=== PATIENT | male | born 1945 | race Caucasian/White ===

== ENCOUNTER 2018-03-26 18:31 | Inpatient (IN) ==
--- NOTE | 2018-03-26 20:54 | ED ---
HPI General Chief Complaint: Altered Mental Status Stated Complaint: Phy sent/medical Time Seen by Provider: 03/26/18 20:23 Source: patient and family Mode of arrival: ambulatory Limitations: altered mental status and physical limitation History of Present Illness HPI narrative: Patient is a 72 yo male with a history of Lewy body dementia w/ Parkinson's and bipolar disorder who presents with altered mental status coinciding with falling and hitting head x3 over the past several days. 4 days ago the patient had "the worst headache of his life" and self-increased his lithium and quetiapine. The headache resolved the next day but was at that point confused and unable to complete sentences, per patient's . He also had more difficulty than usual with balance and proceeded to fall 3 times over the next 3 days, twice hitting his head. Patient unsure if AMS worsened by falls. Possible increase in tremor in recent days. He had a visit with his neurologist's [facility] in [place] today who ordered urgent imaging and labs. When the results were received and discussed with neurologist, the patient was advised to present to ED. He came to [place] in order to be in a hospital closer to his home ([place]). 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 Per patient, has had history of kidney disease but baseline Cr around 1.3. Valera levels were drawn as well but have not resulted per patient. Related Data Home Medications Medication Instructions Recorded Confirmed atenolol 25 mg PO DAILY 03/26/18 03/26/18 bethanechol chloride 25 mg PO BID 03/26/18 03/26/18 lithium carbonate 300 mg PO BID 03/26/18 03/26/18 meloxicam submicronized 5 mg PO DAILY 03/26/18 03/26/18 omeprazole 40 mg PO DAILY 03/26/18 03/26/18 quetiapine 150 mg PO QPM 03/26/18 03/26/18 tamsulosin 0.4 mg PO DAILY 03/26/18 03/26/18 Allergies Allergy/AdvReac Type Severity Reaction Status Date / Time metronidazole AdvReac Severe Headache Verified 03/26/18 23:06 Review of Systems ROS: all other systems reviewed are negative Constitutional Denies fever(s), Reports frequent falls, Denies headache(s) and Denies weakness Eyes Denies change in vision and Denies loss of vision Cardiovascular Denies chest pain and Denies dyspnea Respiratory Denies dyspnea Gastrointestinal Denies abdominal pain Genitourinary Reports urinary frequency Musculoskeletal Reports abnormal gait, Denies muscle weakness and Reports numbness Neurologic Reports abnormal gait, Reports confusion, Reports frequent falls, Reports sensory deficit and Reports disequilibrium [facility] Medical History Medical History Anxiety (Acute) Bipolar 1 disorder (Acute) HTN (hypertension) (Acute) History of prostate cancer (Acute) Kidney disease (Acute) Parkinson disease (Acute) Family History Family History Other Lung cancer Prostate cancer Social History Social History Substance History: No History of Abuse Second Hand Smoke Exposure: No Smoking Status: Never smoker How Often Do You Have a Drink Containing Alcohol: Monthly or less Recent Travel in [facility] within the Last 8 Weeks: No Recent Out of Country Travel within the Last 8 Weeks: No Exam Const General: cooperative, no acute distress and well developed Orientation: alert and awake Other: tremor, at times difficulty interpreting and following commands HENMN Head: normocephalic and atraumatic Nose: no nasal discharge and no epistaxis Mouth: moist mucous membranes Eyes Sclera: normal sclerae Pupils: PERRL Neck Neck: trachea midline and no JVD Resp Effort & Inspection: no use of accessory muscles Auscultation: clear to auscultation bilaterally Cardio Rate: regular rate Rhythm: regular rhythm Heart Sounds: no murmurs GI Inspection: non-distended Palpation: soft, no hepatosplenomegaly and nontender Skin General: dry skin (warm) Neuro General: alert and awake Cranial Nerves: CN's II-XI intact bilaterally, PERRL, accommodation normal, no nystagmus, facial strength normal and other Cognition: abnormal cognition Speech: speech normal Gait: ataxic Motor: tremor (coarse, upper and lower extremities, at rest and with movement) Coordination: egmugu-sm-fday test abnormal, nrrt-ed-cywg test normal, abnormal rapid alternating movement UE and other (worse on left) Comatose Patient: other Pupils: Normal pupillary reactivity/response: bilateral Extrem General: normal to inspection, no clubbing, no cyanosis and no edema Psych Mood: congruent mood Affect: normal affect Judgment: judgment good Course Initial Documented Vital Signs Temperature 98.4 F 03/26/18 18:35 Pulse Rate 72 03/26/18 18:35 Respiratory Rate 15 03/26/18 18:35 Blood Pressure 210/110 H 03/26/18 18:35 Pulse Oximetry 99 03/26/18 18:35 Last Documented Vital Signs Temperature 98.4 F 03/26/18 18:35 Pulse Rate 69 03/27/18 03:50 Respiratory Rate 18 03/27/18 03:50 Blood Pressure 194/98 H 03/27/18 03:50 Pulse Oximetry 95 03/27/18 03:50 Medical Decision Making MDM Narrative Medical decision making narrative: I, Dr. Nur, have reviewed the medical student's documentation and am in agreement, met with the patient face to face, made the diagnosis, and the medical decision making was done by me. The patient was initially evaluated by Jesse Munroe, MS IV. Please see his complete history and physical. *My assessment and Findings: The patient presents with a history of reportedly being off balance over the last several days. The patient reports falling 3 times related to this and hitting his head twice with the falls. The patient denies having any vertigo associated with this, however he is having to hold onto things to walk and walk with a wide-based gait. The patient reports that he was evaluated earlier today in [place] regarding the symptoms and was noted to have an acute kidney injury. They plan to admit him in [place], however the patient reports that he elected to be admitted closer to home. The patient's primary care physician is Dr. Baker. The patient reports a past medical history of Lewy body dementia, Parkinson's. The patient reports that Parkinson's medications were not working well for him, therefore he is not taking any currently. He does report having worsening tremor recently. The patient has copies of his medical records from the evaluation earlier today that revealed a creatinine of 2.6, MRI that revealed a venous abnormality in the left cerebellum. General: The patient is a well-developed well-nourished male in no acute distress. Head and Neck exam: Head is normocephalic atraumatic. Eyes: EOMI, pupils are equal round and reactive to light. Nose: Midline septum with pink mucous membranes Mouth: Dentition unremarkable. Moist mucus membranes. Posterior oropharynx is not erythematous. No tonsillar hypertrophy. Uvula midline. Airway patent. Neck: No palpable lymphadenopathy. No nuchal rigidity. No thyromegaly. Cardiovascular: Regular rate and rhythm without murmurs, gallops, or rubs. No pulse deficit to the extremities on simultaneous auscultation and palpation of his radial artery. Lungs: Clear to auscultation bilaterally. No wheezes, rhonchi, or rales. Abdomen: Soft, without tenderness to palpation in all 4 quadrants of the abdomen. No guarding, rebound, or rigidity. Normal bowel sounds are audible. Negative Karimi's sign. Extremities: No clubbing, cyanosis, or edema. 2+ pulses in all 4 extremities. No calf tenderness on palpation. Back: No spinous process tenderness to palpation. No costovertebral angle tenderness to palpation. Neurologic Exam: Cranial nerves 2-12 were intact on exam. Strength is 5/5 in all 4 extremities. The patient reports having increased sensitivity on sensory testing reportedly done earlier today specifically on the left lower extremity. The patient has increased difficulty with finger to nose on the left compared to the right. The patient has a coarse tremor noted that also makes it difficult for finger to nose testing as well as heel to francois, however heel to francois is slightly worse on the left compared to the right. Skin Exam: No rash noted. Intact skin that is warm and dry. During the course of the patient's emergency department visit, the patient's history, examination, and differential diagnosis were reviewed with the patient. The patient was placed on a environmental monitoring specialist with oximetry and frequent blood pressure monitoring. The patient had IV access obtained and blood work sent for analysis. From reviewing the records from the [facility], the patient was noted to have an MRI of the brain done that showed a large venous anomaly of the left cerebellum. This was not seen previously according to the neurologist note on his prior MRIs and according to the neurologist note does correspond to the area of complaint for the patient's current symptoms. The neurologist was concerned about a subacute vascular finding and did recommend admission for further evaluation. The patient's diagnostic studies were reviewed and remarkable for a creatinine of 2.73 this is compared to the last creatinine at this facility which on July 04, 2014 was noted to be 1.82.The patient's white count is within normal limits at 7.7, hemoglobin 14.4, platelets 238 with 8.3 monocytes, PT 10.3 , PTT 24. Urinalysis is unremarkable, lithium level is within normal limits at 1.1. The patient's case including history, pertinent physical examination findings, and laboratory studies were discussed with Dr. Sheppard. It was agreed that the patient would be admitted to the hospitalist service. The patient's results were discussed with the patient, including the plan of care. I explained that further testing and/ or monitoring is indicated based on the patient's history, examination, and/ or laboratory findings. Therefore, I recommended admission for additional evaluation. The patient expressed understanding and was agreeable with this plan. The patient was admitted to the hospital in guarded condition and sent to a bed under the care of the [facility] service. Medical Screen Exam Complete: Yes Emergency Medical Condition: Yes Differential Diagnosis Differential Diagnosis: Cerebellar abnormality, versus progression of Parkinson' s, versus progression of Lewy body dementia, versus lithium toxicity Medical Records Medical records reviewed: Yes I reviewed the patient's medical records. Lab Data Lab results reviewed: Yes I reviewed the patient's lab results. Result diagrams: 03/27/18 03:40 03/27/18 03:40 Lab Results 03/26/18 03/26/18 03/26/18 Range/Units 21:00 21:00 21:00 WBC 6.4 (4.0-11.0) th/mm3 RBC 4.51 (4.50-5.90) mil/mm3 Hgb 14.7 (13.0-17.0) gm/dL Hct 45.3 (39.0-51.0) % MCV 100.4 H (80.0-100.0) fL MCH 32.6 (27.0-34.0) pg MCHC 32.5 (32.0-36.0) % RDW 13.9 (11.6-17.2) % Plt Count 228 (150-450) th/mm3 MPV 8.4 (7.0-11.0) fL Neut % (Auto) 69.7 (16.0-70.0) % Lymph % (Auto) 17.0 (9.0-44.0) % [place] % (Auto) 6.9 (0.0-8.0) % Eos % (Auto) 5.4 H (0.0-4.0) % Baso % (Auto) 1.0 (0.0-2.0) % Neut # (Auto) 4.4 (1.8-7.7) th/mm3 Lymph # (Auto) 1.1 (1.0-4.8) th/mm3 [place] # (Auto) 0.4 (0.0-0.9) th/mm3 Eos # (Auto) 0.3 (0.0-0.4) th/mm3 Baso # (Auto) 0.1 (0.0-0.2) th/mm3 WBC Differential . Differential Comment Auto diff final PT 10.3 (9.8-11.6) sec INR 1.0 Ratio APTT 24.0 L (24.3-30.1) sec Sodium 141 (136-145) meq/L Potassium 4.7 (3.5-5.1) meq/L Chloride 112 H (98-107) meq/L Carbon Dioxide 21.9 (21.0-32.0) meq/L Anion Gap 7 (5-15) meq/L BUN 19 H (7-18) mg/dL Creatinine 2.73 H (0.60-1.30) mg/dL Estimated GFR 23 L (>89) mL/min Random Glucose 98 (74-106) mg/dL Calcium 9.5 (8.5-10.1) mg/dL Total Bilirubin 0.9 (0.2-1.0) mg/dL AST 14 L (15-37) U/L ALT 23 (12-78) U/L Alkaline Phosphatase 76 (45-117) U/L Troponin I Less than 0.02 L (0.02-0.05) ng/mL Total Protein 7.7 (6.4-8.2) g/dL Albumin 3.5 (3.4-5.0) g/dL Lipase 223 (73-393) U/L Urine Color (Yellw/Straw) Urine Clarity (Clear) Urine pH (5.0-8.5) Ur Specific [place] (1.002-1.035) Urine Protein (Neg-Trace) mg/dL Urine Glucose (UA) (Negative) mg/dL Urine Ketones (Negative) mg/dL Urine Occult Blood (Negative) Urine Nitrate (Negative) Urine Bilirubin (Negative) Urine Urobilinogen (Less than 2) mg/dL Ur Leukocyte Esterase (Negative) Urine RBC (0-3) /hpf Urine WBC (0-5) /hpf Micro UA Comment Ur Microscopic Review Urine Culture Comments Valera (0.5-1.5) meq/L 03/26/18 03/27/18 03/27/18 Range/Units 21:00 01:20 03:40 WBC 7.7 (4.0-11.0) th/mm3 RBC 4.38 L (4.50-5.90) mil/mm3 Hgb 14.4 (13.0-17.0) gm/dL Hct 44.2 (39.0-51.0) % MCV 101.0 H (80.0-100.0) fL MCH 32.9 (27.0-34.0) pg MCHC 32.5 (32.0-36.0) % RDW 14.2 (11.6-17.2) % Plt Count 238 (150-450) th/mm3 MPV 8.2 (7.0-11.0) fL Neut % (Auto) 62.1 (16.0-70.0) % Lymph % (Auto) 21.7 (9.0-44.0) % [place] % (Auto) 8.3 H (0.0-8.0) % Eos % (Auto) 6.9 H (0.0-4.0) % Baso % (Auto) 1.0 (0.0-2.0) % Neut # (Auto) 4.8 (1.8-7.7) th/mm3 Lymph # (Auto) 1.7 (1.0-4.8) th/mm3 [place] # (Auto) 0.6 (0.0-0.9) th/mm3 Eos # (Auto) 0.5 H (0.0-0.4) th/mm3 Baso # (Auto) 0.1 (0.0-0.2) th/mm3 WBC Differential . Differential Comment Auto diff final PT (9.8-11.6) sec INR Ratio APTT (24.3-30.1) sec Sodium (136-145) meq/L Potassium (3.5-5.1) meq/L Chloride (98-107) meq/L Carbon Dioxide (21.0-32.0) meq/L Anion Gap (5-15) meq/L BUN (7-18) mg/dL Creatinine (0.60-1.30) mg/dL Estimated GFR (>89) mL/min Random Glucose (74-106) mg/dL Calcium (8.5-10.1) mg/dL Total Bilirubin (0.2-1.0) mg/dL AST (15-37) U/L ALT (12-78) U/L Alkaline Phosphatase (45-117) U/L Troponin I (0.02-0.05) ng/mL Total Protein (6.4-8.2) g/dL Albumin (3.4-5.0) g/dL Lipase (73-393) U/L Urine Color Straw (Yellw/Straw) Urine Clarity Clear (Clear) Urine pH 6.0 (5.0-8.5) Ur Specific [place] 1.002 (1.002-1.035) Urine Protein Negative (Neg-Trace) mg/dL Urine Glucose (UA) Negative (Negative) mg/dL Urine Ketones Negative (Negative) mg/dL Urine Occult Blood Negative (Negative) Urine Nitrate Negative (Negative) Urine Bilirubin Negative (Negative) Urine Urobilinogen Less than 2 (Less than 2) mg/dL Ur Leukocyte Esterase Negative (Negative) Urine RBC Less than 1 (0-3) /hpf Urine WBC 1 (0-5) /hpf Micro UA Comment Culture not ind Ur Microscopic Review Not Reportable Urine Culture Comments Culture not ind Valera 1.1 (0.5-1.5) meq/L 03/27/18 Range/Units 03:40 WBC (4.0-11.0) th/mm3 RBC (4.50-5.90) mil/mm3 Hgb (13.0-17.0) gm/dL Hct (39.0-51.0) % MCV (80.0-100.0) fL MCH (27.0-34.0) pg MCHC (32.0-36.0) % RDW (11.6-17.2) % Plt Count (150-450) th/mm3 MPV (7.0-11.0) fL Neut % (Auto) (16.0-70.0) % Lymph % (Auto) (9.0-44.0) % [place] % (Auto) (0.0-8.0) % Eos % (Auto) (0.0-4.0) % Baso % (Auto) (0.0-2.0) % Neut # (Auto) (1.8-7.7) th/mm3 Lymph # (Auto) (1.0-4.8) th/mm3 [place] # (Auto) (0.0-0.9) th/mm3 Eos # (Auto) (0.0-0.4) th/mm3 Baso # (Auto) (0.0-0.2) th/mm3 WBC Differential Differential Comment PT (9.8-11.6) sec INR Ratio APTT (24.3-30.1) sec Sodium 141 (136-145) meq/L Potassium 4.2 (3.5-5.1) meq/L Chloride 113 H (98-107) meq/L Carbon Dioxide 22.3 (21.0-32.0) meq/L Anion Gap 6 (5-15) meq/L BUN 18 (7-18) mg/dL Creatinine 2.71 H (0.60-1.30) mg/dL Estimated GFR 23 L (>89) mL/min Random Glucose 98 (74-106) mg/dL Calcium 9.2 (8.5-10.1) mg/dL Total Bilirubin (0.2-1.0) mg/dL AST (15-37) U/L ALT (12-78) U/L Alkaline Phosphatase (45-117) U/L Troponin I (0.02-0.05) ng/mL Total Protein (6.4-8.2) g/dL Albumin (3.4-5.0) g/dL Lipase (73-393) U/L Urine Color (Yellw/Straw) Urine Clarity (Clear) Urine pH (5.0-8.5) Ur Specific [place] (1.002-1.035) Urine Protein (Neg-Trace) mg/dL Urine Glucose (UA) (Negative) mg/dL Urine Ketones (Negative) mg/dL Urine Occult Blood (Negative) Urine Nitrate (Negative) Urine Bilirubin (Negative) Urine Urobilinogen (Less than 2) mg/dL Ur Leukocyte Esterase (Negative) Urine RBC (0-3) /hpf Urine WBC (0-5) /hpf Micro UA Comment Ur Microscopic Review Urine Culture Comments Valera (0.5-1.5) meq/L Discharge Plan Discharge Disposition Patient Disposition: 30 Still Patient Discharge Details Diagnosis: Gait instability, Acute kidney injury Physicians Team ED Provider: Dea Nur Primary Care Provider: UNKNOWN, Attending Provider: Jamie Wylie Other Providers: [facility],Insurance ; John Roy ; Alice Franz Status ED Status: Admitted Patient
[2018-03-26 22:10] LABS: Baso # (Auto) 0.1 th/mm3 (0.0-0.2); Eos # (Auto) 0.3 th/mm3 (0.0-0.4); Eos % (Auto) 5.4 % (0.0-4.0); Hematocrit 45.3 % (39.0-51.0); Hemoglobin 14.7 gm/dL (13.0-17.0); Lymph # (Auto) 1.1 th/mm3 (1.0-4.8); Mean Corpuscular HGB Conc 32.5 % (32.0-36.0); Mean Corpuscular Hemoglobin 32.6 pg (27.0-34.0); Mean Corpuscular Volume 100.4 fL (80.0-100.0); Mean Platelet Volume 8.4 fL (7.0-11.0); Mono # (Auto) 0.4 th/mm3 (0.0-0.9); Mono % (Auto) 6.9 % (0.0-8.0); Neut # (Auto) 4.4 th/mm3 (1.8-7.7); Neut % (Auto) 69.7 % (16.0-70.0); Platelet Count 228 th/mm3 (150-450); Red Blood Count 4.51 mil/mm3 (4.50-5.90); Red Cell Distribution Width 13.9 % (11.6-17.2); White Blood Count 6.4 th/mm3 (4.0-11.0)
[2018-03-26 22:27] LABS: Albumin 3.5 g/dL (3.4-5.0); Anion Gap 7 meq/L (5-15); Aspartate Aminotransferase 14 U/L (15-37); Blood Urea Nitrogen 19 mg/dL (7-18); Calcium 9.5 mg/dL (8.5-10.1); Carbon Dioxide 21.9 meq/L (21.0-32.0); Chloride 112 meq/L (98-107); Glomerular Filtration Rate 23 mL/min (>89); Glucose,Random 98 mg/dL (74-106); Lipase 223 U/L (73-393); Potassium 4.7 meq/L (3.5-5.1); Sodium 141 meq/L (136-145)
[2018-03-26 22:29] LABS: Prothrombin Time 10.3 sec (9.8-11.6)
[2018-03-26 22:39] LABS: Alanine Aminotransferase 23 U/L (12-78); Alkaline Phosphatase 76 U/L (45-117); Total Protein 7.7 g/dL (6.4-8.2)
[2018-03-26] MEDS ORDERED: Labetalol HCl Inj 100 MG/20 ML Vial IV.PUSH ONE (23:03)
[2018-03-27 01:30] LABS: Bilirubin,Urine Negative (Negative); Clarity,Urine Clear (Clear); Color,Urine Straw (Yellw/Straw); Glucose,Urine (UA) Negative (Negative); Leukocyte Esterase,Urine Negative (Negative); Nitrite,Urine Negative (Negative); Specific Gravity,Urine 1.002 (1.002-1.035)
[2018-03-27] MEDS ORDERED: Bisacodyl 10 MG Supp RECTAL PRN (02:41)
[2018-03-27] MEDS ORDERED: Acetaminophen 325 MG Tablet PO PRN (02:41)
--- NOTE | 2018-03-27 02:56 | P.HP ---
History of Present Illness Service: [facility] Primary Care Physician: UNKNOWN History of Present Illness: 72-year-old male with a past medical history significant for Parkinson's disease , bipolar disorder, hypertension and a history of prostate cancer presents to the emergency department for the evaluation of acute renal failure and new findings on MRI. For the past several days, the patient has had 3 major falls. He complains of associated headache. Per ED documentation, the patient's states that he was confused and unable to complete sentences. He is followed by Dr. Osborne, his neurologist, in [place]. He was seen in neurology clinic yesterday for evaluation of his falls, unsteady gait, confusion and increased baseline tremor. Lab work revealed an elevated creatinine. 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 It was recommended to the patient that he be admitted to [facility] [place] in [place] for further evaluation. As the patient lives in [place], he declined admission in [place] and came to [place] for further evaluation. He denies any chest pain or shortness of breath. No fever/chills. No abdominal pain. No nausea/vomiting/diarrhea. Inpatient Certification: I certify that the inpatient services were ordered in accordance with Medicare regulations governing the order. This includes certification that hospital inpatient services are reasonable and necessary and in the case of services not specified as inpatient-only under 42 CFR 419.22(n), that they are appropriately provided as inpatient services in accordance to with the 2-midnight benchmark under 43 CFR 412.3(e) Estimated Total Length of Stay (Days): 2 Plans for Post Hospital Care: Not yet determined Review of Systems All other systems reviewed negative except as stated [facility] - History History Provided By: Patient - Medical History Medical History: Medical History (Last Updated 03/27/18 @ 02:48 by Remedios Sheppard MD) Anxiety Bipolar 1 disorder HTN (hypertension) History of prostate cancer Kidney disease Parkinson disease - Surgical History Surgical History: Surgical History (Last Reviewed 03/27/18 @ 02:48 by Remedios Sheppard MD) No history of previous surgery - Family History Family History: Family History (Last Updated 03/27/18 @ 02:48 by Remedios Sheppard MD) Other Lung cancer Prostate cancer - Tobacco History Second Hand Smoke Exposure: No Tobacco Use In Past 30 Days: No Smoking Status: Never smoker - Alcohol History How Often Do You Have a Drink Containing Alcohol: Monthly or less - Substance Use History Substance History: No History of Abuse - Travel History Recent Travel in the USA Within the Last 8 Weeks: No Recent Travel Out of the Country Within the Last 8 Weeks: No - Immunization History Tetanus Immunization: >5 Years Medications and Allergies Allergies Allergy/AdvReac Type Severity Reaction Status Date / Time metronidazole AdvReac Severe Headache Verified 03/26/18 23:06 Home Medications Medication Instructions Recorded Confirmed Type atenolol 25 mg PO DAILY 03/26/18 03/26/18 History bethanechol chloride 25 mg PO BID 03/26/18 03/26/18 History lithium carbonate 300 mg PO BID 03/26/18 03/26/18 History meloxicam submicronized 5 mg PO DAILY 03/26/18 03/26/18 History omeprazole 40 mg PO DAILY 03/26/18 03/26/18 History quetiapine 150 mg PO QPM 03/26/18 03/26/18 History tamsulosin 0.4 mg PO DAILY 03/26/18 03/26/18 History Exam Vital signs: Vital Signs 03/26/18 18:35 03/26/18 18:54 03/26/18 23:33 Temperature 98.4 F Pulse Rate 72 72 69 Respiratory Rate 15 24 18 Blood Pressure 210/110 H 194/103 H 174/81 H Pulse Oximetry 99 96 96 Intake & Output 03/26/18 03/26/18 03/27/18 06:59 18:59 06:59 Weight 95.254 kg Narrative: Gen.: No acute distress Head: Normocephalic. Atraumatic. EENT: Pupils equal round and reactive to light. Nose without drainage. Airway intact. Throat without injection. Cardiovascular: Regular rate and rhythm. No murmurs, rubs or gallops. Respiratory: Lungs clear to auscultation bilaterally. No wheezes or rhonchi. Abdomen: Soft, nontender, nondistended. No peritoneal signs. Musculoskeletal: No gross deformities. No edema. Skin: No obvious rashes or erythema. Neuro: Cranial nerves II through XII intact. Finger to nose, heel to francois and rapid alternating movements abnormal. 5/5 strength throughout. Normal speech. Results - Labs CBC & Chem 7: 03/26/18 21:00 03/26/18 21:00 Labs: Laboratory Results - last 24 hr 03/26/18 03/26/18 03/26/18 21:00 21:00 21:00 WBC 6.4 RBC 4.51 Hgb 14.7 Hct 45.3 MCV 100.4 H MCH 32.6 MCHC 32.5 RDW 13.9 Plt Count 228 MPV 8.4 Neut % (Auto) 69.7 Lymph % (Auto) 17.0 Glacier % (Auto) 6.9 Eos % (Auto) 5.4 H Baso % (Auto) 1.0 Neut # (Auto) 4.4 Lymph # (Auto) 1.1 [place]acier # (Auto) 0.4 Eos # (Auto) 0.3 Baso # (Auto) 0.1 WBC Differential . Differential Comment Auto diff final PT 10.3 INR 1.0 APTT 24.0 L Sodium 141 Potassium 4.7 Chloride 112 H Carbon Dioxide 21.9 Anion Gap 7 BUN 19 H Creatinine 2.73 H Estimated GFR 23 L Random Glucose 98 Calcium 9.5 Total Bilirubin 0.9 AST 14 L ALT 23 Alkaline Phosphatase 76 Troponin I Less than 0.02 L Total Protein 7.7 Albumin 3.5 Lipase 223 Urine Color Urine Clarity Urine pH Ur Specific Kent Urine Protein Urine Glucose (UA) Urine Ketones Urine Occult Blood Urine Nitrate Urine Bilirubin Urine Urobilinogen Ur Leukocyte Esterase Urine RBC Urine WBC Micro UA Comment Ur Microscopic Review Urine Culture Comments Bay 03/26/18 03/27/18 21:00 01:20 WBC RBC Hgb Hct MCV MCH MCHC RDW Plt Count MPV Neut % (Auto) Lymph % (Auto) [place]ac[place] % (Auto) Eos % (Auto) Baso % (Auto) Neut # (Auto) Lymph # (Auto) [place] # (Auto) Eos # (Auto) Baso # (Auto) WBC Differential Differential Comment PT INR APTT Sodium Potassium Chloride Carbon Dioxide Anion Gap BUN Creatinine Estimated GFR Random Glucose Calcium Total Bilirubin AST ALT Alkaline Phosphatase Troponin I Total Protein Albumin Lipase Urine Color Straw Urine Clarity Clear Urine pH 6.0 Ur Specific Kent 1.002 Urine Protein Negative Urine Glucose (UA) Negative Urine Ketones Negative Urine Occult Blood Negative Urine Nitrate Negative Urine Bilirubin Negative Urine Urobilinogen Less than 2 Ur Leukocyte Esterase Negative Urine RBC Less than 1 Urine WBC 1 Micro UA Comment Culture not ind Ur Microscopic Review Not Reportable Urine Culture Comments Culture not ind Bay 1.1 Caprini VTE Risk Assessment Caprini VTE Risk Assessment: Moderate/High Risk (score >= 2) Caprini Risk Assessment Model: Point Value = 1 Point Value = 2 Point Value = 3 Point Value = 5 Age 41-60 Minor surgery BMI > 25 kg/m2 Swollen legs Varicose veins or History of unexplained or recurrent spontaneous Oral contraceptives or hormone replacement Sepsis (< 1 month) Serious lung disease, including pneumonia (< 1 month) Abnormal pulmonary function Acute myocardial infarction Congestive heart failure (< 1 month) History of inflammatory bowel disease Medical patient at bed rest Age 61-74 Arthroscopic surgery Major open surgery (> 45 min) Laparoscopic surgery (> 45 min) Malignancy Confined to bed (> 72 hours) Immobilizing plaster cast Central venous access Age >= 75 History of VTE Family history of VTE Factor V Leiden Prothrombin [id number] Lupus anticoagulant Anticardiolipin antibodies Elevated serum homocysteine Heparin-induced thrombocytopenia Other congenital or acquired thrombophilia Stroke (< 1 month) Elective arthroplasty Hip, pelvis, or leg fracture Acute spinal cord injury (< 1 month) Prophylaxis Regimen: Total Risk Factor Score Risk Level Prophylaxis Regimen 0-1 Low Early ambulation 2 Moderate Order ONE of the following: *Sequential Compression Device (SCD) *Heparin 5000 units SQ BID 3-4 Higher Order ONE of the following medications: *Heparin 5000 units SQ TID *Enoxaparin/Lovenox 40 mg SQ daily (WT < 150 kg, CrCl > 30 mL/min) *Enoxaparin/Lovenox 30 mg SQ daily (WT < 150 kg, CrCl > 10-29 mL/min) *Enoxaparin/Lovenox 30 mg SQ BID (WT < 150 kg, CrCl > 30 mL/min) AND/OR *Sequential Compression Device (SCD) 5 or more Highest Order ONE of the following medications: *Heparin 5000 units SQ TID (Preferred with Epidurals) *Enoxaparin/Lovenox 40 mg SQ daily (WT < 150 kg, CrCl > 30 mL/min) *Enoxaparin/Lovenox 30 mg SQ daily (WT < 150 kg, CrCl > 10-29 mL/min) *Enoxaparin/Lovenox 30 mg SQ BID (WT < 150 kg, CrCl > 30 mL/min) AND *Sequential Compression Device (SCD) Assessment and Plan - Plan Assessment/plan: 1. 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 These findings correspond to the patient's cerebellar symptoms. Neurology consulted, appreciate assistance 2. Acute kidney failure Creatinine 2.73, baseline 1.3 Renal ultrasound pending IV fluid hydration Nephrology consulted, appreciate recommendations Concern for lithium nephropathy, holding lithium 3. Hypertension Continue home atenolol 4. Bipolar disorder Holding lithium as above Continue Seroquel FEN Renal diet Electrolytes: Monitor and replete as needed NS at 125 cc/hour Holding pharmacologic anticoagulation for new vascular finding on MRI
[2018-03-27] MEDS: Sod Chloride 0.9% Inj 1,000 ML IV.CONT SCH ×2 (03:03→10:00)
[2018-03-27] MEDS ORDERED: hydrALAZINE HCl Inj 20 MG/ML Vial IV.PUSH ONE (04:05)
[2018-03-27 04:30] LABS: Baso # (Auto) 0.1 th/mm3 (0.0-0.2); Eos # (Auto) 0.5 th/mm3 (0.0-0.4); Eos % (Auto) 6.9 % (0.0-4.0); Hematocrit 44.2 % (39.0-51.0); Hemoglobin 14.4 gm/dL (13.0-17.0); Lymph # (Auto) 1.7 th/mm3 (1.0-4.8); Lymph % (Auto) 21.7 % (9.0-44.0); Mean Corpuscular HGB Conc 32.5 % (32.0-36.0); Mean Corpuscular Hemoglobin 32.9 pg (27.0-34.0); Mean Platelet Volume 8.2 fL (7.0-11.0); Mono # (Auto) 0.6 th/mm3 (0.0-0.9); Mono % (Auto) 8.3 % (0.0-8.0); Neut # (Auto) 4.8 th/mm3 (1.8-7.7); Neut % (Auto) 62.1 % (16.0-70.0); Platelet Count 238 th/mm3 (150-450); Red Blood Count 4.38 mil/mm3 (4.50-5.90); Red Cell Distribution Width 14.2 % (11.6-17.2); White Blood Count 7.7 th/mm3 (4.0-11.0)
[2018-03-27 04:53] LABS: Calcium 9.2 mg/dL (8.5-10.1); Carbon Dioxide 22.3 meq/L (21.0-32.0); Potassium 4.2 meq/L (3.5-5.1)
--- NOTE | 2018-03-27 08:30 | US ---
EXAM DATE: 03/27/2018 12:00 AM EDT AGE/SEX: 72 years / Male INDICATIONS: Increased BUN/Creat nine. CLINICAL DATA: This is the patient's initial encounter. Patient reports that signs and symptoms have been present for 1 day and indicates a pain score of 1/10. MEDICAL/SURGICAL HISTORY: Hypertension. Anxiety. Bipolar disorder. Prostate cancer. Kidney dise ase. Parkinson's disease. None. COMPARISON: [facility], CT ABDOMEN AND PELVIS W/O CONTRAST, 06/30/2014. . MEASUREMENTS: Right Kidney:__10.1 x 4.5 x 5.3 cm Left Kidney:__10.5 x 3.7 x 5.6 cm FINDINGS: Right Kidney: Increased echotexture. No mass or hydronephrosis. Left Kidney: Increased echotexture. No mass or hydronephrosis. Bladder: Within normal limits given the degree of distension. Other: None. CONCLUSION: 1. Minimal increase in echogenicity suggesting chronic renal disease. Renal size is maintained. No h ydronephrosis. Electronically signed by: Vini Terrazas MD 03/27/2018 8:29 AM EDT
[2018-03-27] MEDS: Senna/Docusate Sodium 8.6/50 MG Tablet PO SCH ×2 (08:37→20:42)
[2018-03-27] MEDS: Atenolol 25 MG Tablet PO SCH (08:37)
[2018-03-27] MEDS ORDERED: QUEtiapine 25 MG Tablet PO SCH (09:00)
--- NOTE | 2018-03-27 09:52 | P.CONNP ---
History of Present Illness Service: Nephrology Reason for Consult: Acute on chronic kidney disease vs progressive CKD. Primary Care Provider: UNKNOWN History of Present Illness: Patient was admitted with neurological symptoms of dizziness, unsteady gait, confusion. His creatinine was around 2.7. In 2015, his creatinine was about 1.8. UA and renal US are unremarkable. He has history of bipolar illness, on [place]. Patient was also on Meloxicam as per medication list. His [place] level was 1.1. Review of Systems Constitutional: Denies anorexia, Denies weakness Cardiovascular: Denies chest pain, Denies chest pain at rest Respiratory: Denies chest congestion Genitourinary: Denies blood in urine Musculoskeletal: Reports abnormal walking Skin/Breast: Denies bleeding lesions Neurologic: Reports abnormal speech, Reports abnormal walking, Reports unsteadiness, Denies loss of vision Hematologic/Lymphatic: Denies easy bleeding PMFSH - History History Provided By: Patient - Medical History Medical History: Medical History (Last Reviewed 03/27/18 @ 08:59 by Wolf Solis) Anxiety Bipolar 1 disorder HTN (hypertension) History of prostate cancer Kidney disease Parkinson disease - Surgical History Surgical History: Surgical History (Last Reviewed 03/27/18 @ 08:59 by Wolf Solis) No history of previous surgery - Family History Family History: Family History (Last Updated 03/27/18 @ 02:48 by Remedios Sheppard MD) Other Lung cancer Prostate cancer - Tobacco History Second Hand Smoke Exposure: No Tobacco Use In Past 30 Days: No Smoking Status: Never smoker - Alcohol History How Often Do You Have a Drink Containing Alcohol: Monthly or less - Substance Use History Substance History: No History of Abuse - Travel History Recent Travel in the [place] Within the Last 8 Weeks: No Recent Travel Out of the Country Within the Last 8 Weeks: No - Immunization History Tetanus Immunization: >5 Years Medications and Allergies Active Medications: Active Medications Acetaminophen (Tylenol) 650 mg PO Q4H PRN PRN Reason: Temp > 100.4 Al Hydroxide/Mg Hydroxide (Milk Of Magnesia Liq) 30 ml PO Q12H PRN PRN Reason: Mild Constipation Atenolol (Tenormin) 25 mg PO DAILY [facility] Last Admin: 03/27/18 08:37 Dose: 25 mg Bethanechol Chloride (Urecholine) 25 mg PO BID [facility] Last Admin: 03/27/18 08:37 Dose: 25 mg Bisacodyl (Dulcolax Supp) 10 mg RECTAL DAILY PRN PRN Reason: SEVERE CONSITIPATION Clonidine HCl (Catapres) 0.1 mg PO Q6H PRN PRN Reason: SEE LABEL COMMENTS Last Admin: 03/27/18 09:27 Dose: 0.1 mg Sodium Chloride (Ns Inj) 1,000 mls @ 125 mls/hr IV.CONT .Q8H [facility] Last Admin: 03/27/18 03:03 Dose: 125 mls/hr Lactulose (Lactulose Liq) 30 ml PO DAILY PRN PRN Reason: SEVERE CONSITIPATION Ondansetron HCl (Zofran Inj) 4 mg IV.PUSH Q6H PRN PRN Reason: NAUSEA OR VOMITING Pantoprazole Sodium (Protonix) 40 mg PO DAILY [facility] Last Admin: 03/27/18 08:37 Dose: 40 mg Quetiapine Fumarate (Seroquel) 75 mg PO BID [facility] Last Admin: 03/27/18 08:36 Dose: 75 mg Senna/Docusate Sodium (Kristina-Colace) 1 tab PO BID [facility] Last Admin: 03/27/18 08:37 Dose: Not Given Sennosides (Senokot) 17.2 mg PO Q12H PRN PRN Reason: Moderate Constipation Tamsulosin HCl (Flomax) 0.4 mg PO DAILY [facility] Last Admin: 03/27/18 08:36 Dose: 0.4 mg Allergies Allergy/AdvReac Type Severity Reaction Status Date / Time metronidazole AdvReac Severe Headache Verified 03/26/18 23:06 Home Medications Medication Instructions Recorded Confirmed Type atenolol 25 mg PO DAILY 03/26/18 03/26/18 History bethanechol chloride 25 mg PO BID 03/26/18 03/26/18 History lithium carbonate 300 mg PO BID 03/26/18 03/26/18 History meloxicam submicronized 5 mg PO DAILY 03/26/18 03/26/18 History omeprazole 40 mg PO DAILY 03/26/18 03/26/18 History quetiapine 150 mg PO QPM 03/26/18 03/26/18 History tamsulosin 0.4 mg PO DAILY 03/26/18 03/26/18 History Exam Vital signs: Vital Signs 03/26/18 18:35 03/26/18 18:54 03/26/18 23:33 Temperature 98.4 F Pulse Rate 72 72 69 Respiratory Rate 15 24 18 Blood Pressure 210/110 H 194/103 H 174/81 H Pulse Oximetry 99 96 96 03/27/18 03:00 03/27/18 03:06 03/27/18 03:50 Temperature Pulse Rate 70 67 69 Respiratory Rate 18 18 18 Blood Pressure 186/100 H 186/100 H 194/98 H Pulse Oximetry 97 95 03/27/18 06:22 03/27/18 08:00 03/27/18 09:00 Temperature 98.1 F Pulse Rate 78 74 70 Respiratory Rate 16 18 Blood Pressure 181/99 H 204/114 H Pulse Oximetry 98 97 03/27/18 09:30 Temperature Pulse Rate 74 Respiratory Rate Blood Pressure Pulse Oximetry Intake & Output 03/26/18 03/27/18 03/27/18 18:59 06:59 18:59 Weight 95.254 kg - Constitutional no acute distress, obese - Routine HEENT Exam Head: Present: normocephalic, atraumatic Eye: Present: EOMI, PERRL ENT: Present: mucous membranes moist - Routine Neck Exam Present: supple, full ROM. Absent: JVD, lymphadenopathy, thyromegaly - Routine Respiratory Exam Present: CTA bilaterally Results - Lab Results 03/27/18 03:40 03/27/18 03:40 Most recent lab results Calcium 9.2 mg/dL (8.5-10.1) 03/27/18 03:40 Assessment and Plan - Assessment (1) Acute worsening of stage 4 chronic kidney disease Code(s): N28.9 - Disorder of kidney and ureter, unspecified; N18.4 - Chronic kidney disease, stage 4 (severe) Status: Acute Plan: As mentioned above his creatinine was 1.8 in 2015. No other recent labs. It is possible that patient may have progressive renal dysfunction due to [place]or[place]. Patient also was on Meloxicam. He should stop all NSAIDs. [place] has been stopped and I agree. Consider psychiatry evaluation for choosing an alternative drug for his bipolar illness. Reduce and taper off fluids. Avoid any other nephrotoxic agents. So, the patient may have CKD due to [place], unclear if there is any acute worsening. Stop Meloxicam. (2) Bipolar illness Code(s): F31.9 - Bipolar disorder, unspecified Status: Acute Plan: See above. (3) Essential (primary) hypertension Code(s): I10 - Essential (primary) hypertension Status: Acute Plan: Patient's BP is very high. Continue home medications. I have started Amlodipine. (4) Gait instability Code(s): R26.81 - Unsteadiness on feet Status: Acute Plan: Apparently has an abnormality in the Cerebellum. Neurology consulted. - Attending Attestation Thanks for the consult.
[2018-03-27] MEDS ORDERED: Haloperidol Inj 5 MG/ML Ampul IV.PUSH PRN (09:54)
[2018-03-27] MEDS: amLODIPine 5 MG Tablet PO SCH (10:12)
--- NOTE | 2018-03-27 12:39 | MB ---
cc: Alice Franz MD DATE: 03/27/2018 REASON FOR CONSULTATION: Gait disorder, falling, abnormal MRI in the past. HISTORY OF PRESENT ILLNESS: This is a 72-year-old man with a history of Parkinson disease, Lewy body disease, sleep disorder, bipolar disorder, hypertension, prostate cancer who comes in for evaluation of acute renal failure and a new finding on MRI. He has had a few falls over the last few days. He has been confused. He follows with Dr. Osborne, a neurologist in [place] at [facility], and he was seen in the clinic yesterday for falls, unsteady gait, confusion and more tremor. His creatinine was elevated. 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 Hence, he was about told to go to [place] to the [facility], but he decided he wanted to come here since he lived in the [facility]. The patient actually had a manic episode a few days ago and took an extra lithium for his and apparently that seemed to have helped his sleep. He is not having any active hallucinations. His sleeping has improved without a lot of vivid dreams. He has not had a drink in a number of years and then recently restarted drinking again. He states he drinks a pint of beer daily. I am not sure if that is accurate, but that is the patient's statement. He does not take any medicines for Parkinson disease currently. He takes lithium for his bipolar. He takes atenolol 25 mg a day for his blood pressure. Blood pressure was high. He also takes Meloxicam as needed, Seroquel at bedtime, which seems to be helping him, 150 mg Flomax and lithium 300 mg b.i.d. PAST MEDICAL HISTORY: Bipolar, hypertension, prostate cancer, kidney disease, Parkinson disease, Lewy body, with sleep involvement. FAMILY HISTORY: Lung and prostate cancer. PHYSICAL EXAMINATION: VITAL SIGNS: Temperature is 98.1, pulse 90, respiratory rate 18, blood pressure 204/114. Currently at bedside, it was 141/90 so it is improved with addition of amlodipine. GENERAL: He is an elderly male, lying in bed in no distress. HEENT: Pupils reactive. Face is symmetric. Tongue midline. NEUROLOGIC: He is awake and alert. He does have some tremor on [id number]. Some increased tone, but no resting tremor. Gait is withheld. Reflexes are normal. LABORATORY DATA: Reviewed. His GFR is 23. Urine with unremarkable toxicology screen. Burgin level 1.1. Coagulation studies: PTT is 24. CBC: MCV is 101.1. He did have an ultrasound of the bladder and the kidney showing echogenicity suggesting chronic renal disease, mildly increased echogenicity. Renal size is maintained. No hydronephrosis, no other imaging completed otherwise. IMPRESSION: Abnormal gait. Falls may be multifactorial. 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 However, at this point, let us go ahead and get a repeat MRI brain, MRA nondalton of Garcia and carotids without contrast obviously due to his renal parameters. Psychiatric evaluation for medication adjustment. We will get some vitamin levels and a thyroid panel and further recommendations will be made accordingly. I will also add in an EEG, just to make sure he is not having any seizure-like events. Continue adequate blood pressure control. It seems that this combination that he is taking of amlodipine is helping. He also has p.r.n., I believe, clonidine. Also watching for any alcohol withdrawal. He is on Ativan currently. Certainly, if he is doing better that can be decreased per [facility] protocol. MD LASHAWN Meadows/julia , 11:47 AM , 11:58 AM
--- NOTE | 2018-03-27 15:41 | P.CONPSY ---
Provisional Diagnosis Admission Date: March 26, 2018 23:44 [place].: Bipolar disorder, Lewy body dementia History of Present Illness Service: Medicine Primary Care Provider: UNKNOWN History of Present Illness: The patient is 72-year-old man, domiciled in [place] with his , father of 2 kids, retired, with an extensive psychiatric history of bipolar disorder, Lewy body dementia, alcohol use disorder, multiple psychiatric hospitalizations, outpatient psychiatric care by a private psychiatrist, he has been in lithium 300 mg 3 times daily, Seroquel 150 mg at bedtime for several years, with a past medical history significant for Parkinson's disease, hypertension and a history of prostate cancer presents to the emergency department for the evaluation of acute renal failure and new findings on MRI. For the past several days, the patient has had 3 major falls. He complains of associated headache. Per ED documentation, the patient's states that he was confused and unable to complete sentences. He is followed by Dr. Osborne, his neurologist, in [place]. He was seen in neurology clinic yesterday for evaluation of his falls, unsteady gait, confusion and increased baseline tremor. Lab work revealed an elevated creatinine. 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 It was recommended to the patient that he be admitted to [facility] in [place] for further evaluation. As the patient lives in [place], he declined admission in [place] and came to [place] for further evaluation. He presents with acute kidney failure Creatinine 2.73, baseline 1.3 and for this reason the liter has been discontinued. He was consulted to psychiatry to help with medication management. Chart was reviewed. The patient was seen along with his . On psychiatric evaluation the patient is calm, cooperative , pleasant. The patient reports feeling much better. He reports good mood, he has been a baseline mood [place]. He does report having episodic visual hallucinations especially at nighttime, but has not have any in the last weeks. He has been quite stable in current psychotropic regimen. He has been in lithium for over 30 years. In the past the patient has been hospitalized due to manic episode as well as depressive episodes. His last hospitalization was about a year ago with visual hallucinations of depression. He denies suicidal and homicidal ideation at the moment, denies visual and auditory hallucinations. The patient is fully oriented x3, no attention deficit, no fluctuation of consciousness at the moment PPHx: extensive psychiatric history of bipolar disorder, Lewy body dementia, multiple psychiatric hospitalizations, outpatient psychiatric care by a private psychiatrist, he has been in lithium 300 mg 3 times daily, Seroquel 150 mg at bedtime for several years, PMHx: HTN (hypertension) History of prostate cancer Kidney disease Parkinson disease Substance Hx: Patient drinks alcohol every day, 1-2 drinks Family Hx: No family psychiatric Social Hx: He was born and raised in [place], he lives in [place] with his , he has 2 kids, is retired, used to be a rn case manager hospice in a [employer] , highest level of education is a master degree Review of Systems All other systems reviewed negative except as stated in HPI [facility] - History History Provided By: Patient - Medical History Medical History: Medical History (Last Reviewed 03/27/18 @ 08:59 by Wolf Solis) Anxiety Bipolar 1 disorder HTN (hypertension) History of prostate cancer Kidney disease Parkinson disease - Surgical History Surgical History: Surgical History (Last Reviewed 03/27/18 @ 08:59 by Wolf Solis) No history of previous surgery - Family History Family History: Family History (Last Updated 03/27/18 @ 02:48 by Remedios Sheppard MD) Other Lung cancer Prostate cancer - Tobacco History Second Hand Smoke Exposure: No Tobacco Use In Past 30 Days: No Smoking Status: Never smoker - Alcohol History How Often Do You Have a Drink Containing Alcohol: Monthly or less - Substance Use History Substance History: No History of Abuse - Travel History Recent Travel in the [place] Within the Last 8 Weeks: No Recent Travel Out of the Country Within the Last 8 Weeks: No - Immunization History Tetanus Immunization: >5 Years Medications and Allergies Active Medications: Active Medications Acetaminophen (Tylenol) 650 mg PO Q4H PRN PRN Reason: Temp > 100.4 Al Hydroxide/Mg Hydroxide (Milk Of Magnesia Liq) 30 ml PO Q12H PRN PRN Reason: Mild Constipation Amlodipine Besylate (Norvasc) 5 mg PO DAILY [facility] Last Admin: 03/27/18 10:12 Dose: 5 mg Atenolol (Tenormin) 25 mg PO DAILY [facility] Last Admin: 03/27/18 08:37 Dose: 25 mg Bethanechol Chloride (Urecholine) 25 mg PO BID [facility] Last Admin: 03/27/18 08:37 Dose: 25 mg Bisacodyl (Dulcolax Supp) 10 mg RECTAL DAILY PRN PRN Reason: SEVERE CONSITIPATION Clonidine HCl (Catapres) 0.1 mg PO Q6H PRN PRN Reason: SEE LABEL COMMENTS Last Admin: 03/27/18 09:27 Dose: 0.1 mg Divalproex Sodium (Depakote Er) 250 mg PO BID ONE Stop: 03/27/18 15:21 Flumazenil (Romazecon Inj) 0.2 mg IV.PUSH Q1M PRN PRN Reason: OVERSEDATION Haloperidol Lactate (Haldol Inj) 1 mg IV.PUSH Q15M PRN PRN Reason: for severe agitation Sodium Chloride (Ns Inj) 1,000 mls @ 75 mls/hr IV.CONT .[id number] [facility] Last Admin: 03/27/18 10:00 Dose: 75 mls/hr Lactulose (Lactulose Liq) 30 ml PO DAILY PRN PRN Reason: SEVERE CONSITIPATION Lorazepam (Ativan) 1 mg PO Q4H PRN PRN Reason: for CIWA 8-10 Lorazepam (Ativan) 2 mg PO Q2H PRN PRN Reason: for CIWA 11-14 Lorazepam (Ativan Inj) 2 mg IV.PUSH Q2H PRN PRN Reason: for CIWA 11-14 Lorazepam (Ativan Inj) 2 mg IV.PUSH Q1H PRN PRN Reason: for CIWA 15-20 Lorazepam (Ativan Inj) 2 mg IV.PUSH Q15M PRN PRN Reason: for CIWA > 20 Lorazepam (Ativan Inj) 1 mg IV.PUSH Q4H PRN PRN Reason: for CIWA 8-10 Last Admin: 03/27/18 10:12 Dose: 1 mg Ondansetron HCl (Zofran Inj) 4 mg IV.PUSH Q6H PRN PRN Reason: NAUSEA OR VOMITING Pantoprazole Sodium (Protonix) 40 mg PO DAILY [facility] Last Admin: 03/27/18 08:37 Dose: 40 mg Quetiapine Fumarate (Seroquel) 300 mg PO HS [facility] Senna/Docusate Sodium (Kristina-Colace) 1 tab PO BID [facility] Last Admin: 03/27/18 08:37 Dose: Not Given Sennosides (Senokot) 17.2 mg PO Q12H PRN PRN Reason: Moderate Constipation Tamsulosin HCl (Flomax) 0.4 mg PO DAILY [facility] Last Admin: 03/27/18 08:36 Dose: 0.4 mg Allergies Allergy/AdvReac Type Severity Reaction Status Date / Time metronidazole AdvReac Severe Headache Verified 03/26/18 23:06 Home Medications Medication Instructions Recorded Confirmed Type atenolol 25 mg PO DAILY 03/26/18 03/26/18 History bethanechol chloride 25 mg PO BID 03/26/18 03/26/18 History lithium carbonate 300 mg PO BID 03/26/18 03/26/18 History meloxicam submicronized 5 mg PO DAILY 03/26/18 03/26/18 History omeprazole 40 mg PO DAILY 03/26/18 03/26/18 History quetiapine 150 mg PO QPM 03/26/18 03/26/18 History tamsulosin 0.4 mg PO DAILY 03/26/18 03/26/18 History Exam Vital signs: Vital Signs 03/26/18 18:35 03/26/18 18:54 03/26/18 23:33 Temperature 98.4 F Pulse Rate 72 72 69 Respiratory Rate 15 24 18 Blood Pressure 210/110 H 194/103 H 174/81 H Pulse Oximetry 99 96 96 03/27/18 03:00 03/27/18 03:06 03/27/18 03:50 Temperature Pulse Rate 70 67 69 Respiratory Rate 18 18 18 Blood Pressure 186/100 H 186/100 H 194/98 H Pulse Oximetry 97 95 03/27/18 06:22 03/27/18 08:00 03/27/18 09:00 Temperature 98.1 F Pulse Rate 78 74 70 Respiratory Rate 16 18 Blood Pressure 181/99 H 204/114 H Pulse Oximetry 98 97 03/27/18 09:30 03/27/18 10:27 03/27/18 12:00 Temperature 98.2 F Pulse Rate 74 90 69 Respiratory Rate 20 Blood Pressure 143/101 H Pulse Oximetry 96 03/27/18 12:50 03/27/18 13:06 03/27/18 15:00 Temperature Pulse Rate 72 69 72 Respiratory Rate Blood Pressure Pulse Oximetry Intake & Output 03/26/18 03/27/18 03/27/18 18:59 06:59 18:59 Intake Total 1000 / 1000 Balance 1000 / 1000 Weight 95.254 kg Intake: IV 1000 / 1000 NS Inj 1,000 ML @ 75 mls/hr IV. 1000 / 1000 CONT .[id number] [facility] Rx#:[id number] Narrative: No tremors, no EPS, no psychomotor agitation or retardation - Constitutional no acute distress - Routine HEENT Exam Head: Present: normocephalic, atraumatic Eye: Present: EOMI, PERRL ENT: Present: mucous membranes moist Mental Status Examination Appearance: Appropriate Consciousness: Alert Orientation: x4 Motor Activity: Normal gait Speech: Unremarkable Language: Adequate Fund of Knowledge: Adequate Attention and Concentration: Adequate Memory: Unremarkable Mood: Appropriate Affect: Appropriate Thought Process & Associations: Intact Thought Content: Appropriate Hallucination Type: None Delusion Type: None Suicidal Ideation: No Suicidal Plan: No Suicidal Intention: No Homicidal Ideation: No Homicidal Plan: No Homicidal Intention: No Insight: Adequate Judgment: Adequate Assessment and Plan - Assessment (1) Bipolar disorder Code(s): F31.9 - Bipolar disorder, unspecified Status: Acute (2) Bipolar disorder Code(s): F31.9 - Bipolar disorder, unspecified Status: Acute - Plan Plan: On psychiatric evaluation today find the patient is calm, cooperative, pleasant. The patient is logical, coherent and relevant. The patient does not present any neuropsychiatric symptoms that require any immediate psychiatric intervention, he denies symptomatology of depression, anxiety, aurelia and psychosis at the moment. He denies suicidal and homicidal ideation, he denies visual and auditory hallucinations. The patient has an extensive psychiatric history of bipolar disorder, visual hallucinations related with Lewy body disease, multiple psychiatric hospitalizations, but he has been stable and his current psychotropic regimen Seroquel 150 mg at bedtime and lithium 200 mg 3 times daily. However, the patient presents currently with renal failure, creatinine 2.3, which could be related with chronic use of lithium, or any other recent, but lithium needs to be discontinued. I will increase the Seroquel to 300 mg at bedtime to avoid a bipolar decompensation, and we will start the patient in Depakote 250 mg twice daily to substitute lithium as a mood stabilizer. I have instructed the patient and his to follow-up with outpatient psychiatry. I will follow-up while the patient is in the hospital. Justification for Continued Inpatient Stay: No admission is indicated
--- NOTE | 2018-03-27 16:14 | MR ---
EXAM DATE: 03/27/2018 1:50 PM EDT AGE/SEX: 72 years / Male INDICATIONS: Confusion. Abnormal prior MRI. CLINICAL DATA: This is the patient's subsequent encounter. Patient reports that signs and symptoms h ave been present for 2 days and indicates a pain score of 0/10. MEDICAL/SURGICAL HISTORY: Parkinson's disease. Carcinoma, lung. Carcinoma, prostatic. hypert ension, renal failure None. COMPARISON: [facility], MR HEAD W/O CONTRAST, 03/27/2018. [facility], MRA NECK W/O CONTRAST, 03/27/2018. [facility], MR BRAIN W/O CONTRAST, 05/07/2017. [facility], CT BRAIN W/O CONTRAST, 07/15/2015. . TECHNIQUE: 3D [id number] MRA was performed. Source images, multiplanar STS MIP, and 3D volum e MIP reconstructions were reviewed. FINDINGS: There is excellent visualization of the major intracranial arteries out to the second-order branch ve ssels. There is no evidence for aneurysm, vessel truncation or stenosis, and no evidence for vascula r malformation. CONCLUSION: 1. Negative MRA Cow ([place] [facility] [place]) non contrast. Electronically signed by: Eduardo Paz MD 03/27/2018 4:13 PM EDT
--- NOTE | 2018-03-27 16:14 | MR ---
EXAM DATE: 03/27/2018 1:50 PM EDT AGE/SEX: 72 years / Male INDICATIONS: Confusion. Abnormal prior MRI. CLINICAL DATA: This is the patient's subsequent encounter. Patient reports that signs and symptoms h ave been present for 2 days and indicates a pain score of 0/10. MEDICAL/SURGICAL HISTORY: Carcinoma, lung. Carcinoma, prostatic. Parkinson's disease. hypert ension, renal failure. None. COMPARISON: [facility], MRA HEAD W/O CONTRAST, 03/27/2018. [facility], CT BRAIN W/O CONTRAST, 07/15/2015. [facility], MR BRAIN W/O CONTRAST, 05/07/2017. . TECHNIQUE: Multiplanar, multisequence examination of the brain was performed without contrast. FINDINGS: Diffusion weighted images demonstrate no evidence for acute infarction. There is mild prominence of t he CSF spaces, ventricles and cisterns. Signal intensity of the brain is normal for age. There are no signs of acute infarction, intracranial hemorrhage, or mass. CONCLUSION: 1. Atrophy. 2. No signs of acute infarction. Electronically signed by: Eduardo Paz MD 03/27/2018 4:12 PM EDT
--- NOTE | 2018-03-27 16:52 | MR ---
EXAM DATE: 03/27/2018 1:50 PM EDT AGE/SEX: 72 years / Male INDICATIONS: . Confusion. Abnormal prior MRI. CLINICAL DATA: This is the patient's subsequent encounter. Patient reports that signs and symptoms h ave been present for 2 days and indicates a pain score of 0/10. MEDICAL/SURGICAL HISTORY: Carcinoma, lung. Carcinoma, prostatic. Parkinson's disease. hypert ension, renal failure None. COMPARISON: No prior exams available for comparison. TECHNIQUE: 3D time-of- flight MRA of the extracranial circulation was performed using a neuro[employer] ar coil. Post processing was performed including rotating sub-volume maximum intensity projections o f each carotid artery, rotating full-volume maximum intensity projections of both carotid arteries, s agittal and coronal sliding thin-slab reformations of each carotid artery, and left oblique sliding t hin-slab reformation through the aortic arch to include the origin of the arch branch vessels. FINDINGS: Aortic Arch : There is a three-vessel origin of the great vessels from the aorta. No evidence of o stial narrowing. Right Carotid : The common carotid artery is intact. The carotid bulb has a normal configuration wi thout ulceration or narrowing. The internal carotid artery lumen is smooth without stenosis. The ex ternal carotid artery is intact. Left Carotid : The common carotid artery is intact. The carotid bulb has a normal configuration wit hout ulceration or narrowing. The internal carotid artery lumen is smooth without stenosis. The ext ernal carotid artery is intact. Vertebrals : The vertebral arteries have a symmetric diameter. No stenotic lesions are seen. CONCLUSION: 1. Negative MRA Carotids non contrast. Percent stenosis is calculated using the diameter of the stenotic region over the diameter of the nor mal distal internal carotid artery Electronically signed by: Eduardo Paz MD 03/27/2018 4:50 PM EDT
[2018-03-27 17:51] LABS: Free T4 (Free Thyroxine) 0.98 ng/dL (0.76-1.46); Thyroid Stimulating Hormone 1.39 uIU/mL (0.358-3.740)
[2018-03-27] MEDS: QUEtiapine 100 MG Tablet PO SCH (20:43)
[2018-03-27] MEDS: Divalproex 250 MG ER Tablet PO SCH (20:43)
--- NOTE | 2018-03-27 21:29 | MG ---
cc: Fracisco Rico MD EEG RECORD NUMBER: [id number] DESCRIPTION: 6-7 Hz activity with admixed 2-3 Hz delta activity occurring 20-50 microvolts. Paroxysmal bursts of 2-3 Hz generalized delta. Good EEG variability reactivity. Occasional sharply contoured frontal waves. Example Epoch 59. Generalized slowing with transition into drowsy state stage I sleep. Disorganized waveforms asynchronous. Reduced driving with photic stimulation. Single lead EKG showing sinus rhythm. INTERPRETATION: Mild to moderate encephalopathy. Clinical correlation. Fracisco Rico MD MG/ns , 08:48 PM , 08:53 PM
[2018-03-27] MEDS: LORazepam 1 MG Tablet PO PRN (22:01)
[2018-03-28] MEDS: Sod Chloride 0.9% Inj 1,000 ML IV.CONT SCH ×2 (07:34→18:17)
[2018-03-28] MEDS: Divalproex 250 MG ER Tablet PO SCH (08:51)
[2018-03-28] MEDS: amLODIPine 5 MG Tablet PO SCH (08:51)
[2018-03-28] MEDS: Atenolol 25 MG Tablet PO SCH (08:51)
[2018-03-28] MEDS: Senna/Docusate Sodium 8.6/50 MG Tablet PO SCH ×2 (08:52→21:20)
--- NOTE | 2018-03-28 09:19 | P.PN ---
Subjective Interval history: attempted to see pt off the floor probably in MRI reviewed his images and per reports nothing acute found.' However I do see a vessel near the left cerebellum and that is why I elected to order MRV w/o contrast. eeg was mild/moderately slow. b12 371-can add 1000mcg po vit b12. Dependent on findings of MRV can consider eval by NSX. Otherwise no other testing per neurology and he can f/u with his MD in [place]. oob with PT eval ?need for rehab. call me if any questions. Physical Exam Vital signs: Vital Signs 03/27/18 09:30 03/27/18 10:27 03/27/18 12:00 Temperature 98.2 F Pulse Rate 74 90 69 Respiratory Rate 20 Blood Pressure 143/101 H Pulse Oximetry 96 03/27/18 12:50 03/27/18 13:06 03/27/18 15:00 Temperature Pulse Rate 72 69 72 Respiratory Rate Blood Pressure Pulse Oximetry 03/27/18 16:00 03/27/18 17:00 03/27/18 17:54 Temperature 98.1 F Pulse Rate 92 H 69 67 Respiratory Rate 18 Blood Pressure 180/106 H Pulse Oximetry 97 03/27/18 20:00 03/27/18 21:00 03/27/18 22:00 Temperature 96.6 F L Pulse Rate 63 62 76 Respiratory Rate 18 Blood Pressure 131/87 Pulse Oximetry 97 03/27/18 23:00 03/28/18 00:00 03/28/18 01:00 Temperature 97.2 F L Pulse Rate 86 70 68 Respiratory Rate 22 Blood Pressure 146/95 H Pulse Oximetry 96 03/28/18 02:00 03/28/18 03:00 03/28/18 04:00 Temperature 96.6 F L Pulse Rate 68 74 64 Respiratory Rate 22 Blood Pressure 161/97 H Pulse Oximetry 95 03/28/18 05:00 03/28/18 06:00 Temperature Pulse Rate 68 72 Respiratory Rate Blood Pressure Pulse Oximetry Intake & Output 03/27/18 03/28/18 03/28/18 18:59 06:59 18:59 Intake Total 1620 / 1620 240 / 240 Output Total 750 / 750 400 / 400 Balance 870 / 870 -160 / -160 Weight 96 kg Intake: IV 1000 / 1000 NS Inj 1,000 ML @ 75 mls/hr IV. 1000 / 1000 CONT .[id number] [facility] Rx#:[id number] Oral 620 / 620 240 / 240 Output: Urine 750 / 750 400 / 400 Other: # Voids 3 Results - Labs CBC & Chem 7: 03/27/18 03:40 03/27/18 03:40 Laboratory Results - last 24 hr 03/27/18 03/27/18 16:47 16:47 Ammonia 33 H Vitamin B12 371 TSH 1.390 Free T4 0.98 - Imaging Impressions Head MRI 03/27/18 00:00 CONCLUSION: 1. Atrophy. 2. No signs of acute infarction. Head MRA 03/27/18 00:00 CONCLUSION: 1. Negative MRA Cow ([place] [facility] [place]) non contrast. Neck MRA 03/27/18 00:00 CONCLUSION: 1. Negative MRA Carotids non contrast. _ Percent stenosis is calculated using the diameter of the stenotic region over the diameter of the normal distal internal carotid artery _
[2018-03-28 09:52] VITALS: RESP 18
--- NOTE | 2018-03-28 10:25 | MR ---
EXAM DATE: 03/28/2018 8:51 AM EDT AGE/SEX: 72 years / Male INDICATIONS: . Left cerebellar venous anomaly. CLINICAL DATA: This is the patient's subsequent encounter. Patient reports that signs and symptoms h ave been present for 4 - 6 days and indicates a pain score of 0/10. MEDICAL/SURGICAL HISTORY: Carcinoma, lung. Parkinson's disease. Carcinoma, prostatic. Hypert ension. Renal failure. None. COMPARISON: [facility], MR HEAD W/O CONTRAST, 03/27/2018. . TECHNIQUE: MR cerebral venography is performed without contrast. Source images, 3D volume MIP, and s liding thin slab MIP reconstructions were reviewed. FINDINGS: There is decrease signal in the straight sinus and central superior sagittal sinus at the confluence of sinuses extending to the left transverse sinus. The remaining visualized dural and deep venous sin uses demonstrate normal signal. CONCLUSION: 1. Asymmetrical signal in the central sagittal sinus/confluence of sinuses extending to the left tra nsverse sinus and straight sinus. 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 Contrast-enha nced examination may be performed if there is continued clinical concern. Electronically signed by: José Miguel Feldman MD 03/28/2018 10:24 AM EDT
[2018-03-28 11:53] LABS: Calcium 9.3 mg/dL (8.5-10.1); Carbon Dioxide 22.4 meq/L (21.0-32.0); Potassium 4.7 meq/L (3.5-5.1)
[2018-03-28] MEDS: LORazepam 1 MG Tablet PO PRN ×2 (12:18→17:14)
--- NOTE | 2018-03-28 14:08 | P.CONPSY ---
Provisional Diagnosis Admission Date: March 26, 2018 23:44 [place] I.: Bipolar disorder, Lewy body dementia History of Present Illness Service: Medicine Primary Care Provider: UNKNOWN History of Present Illness: The patient was seen today for psychiatric reevaluation. The patient is accompanied by a friend and . He is calm, cooperative, in a good spirit. He reports feeling much better. He said that he would be even better he would be able to go home. He says the last night he has some very vivid dreams, cannot sleep as well as he usually does, but he is in a good mood, he is oriented x3, at times confused, he did not recognize me from yesterday, he denies suicidal and homicidal ideation, denies visual and auditory hallucinations. The patient does not present any manic symptoms, no loosening of associations, no ideas of reference, no hyperactivity, no agitation or aggressive behavior at the moment. [facility] - History History Provided By: Patient - Medical History Medical History: Medical History (Last Reviewed 03/27/18 @ 08:59 by Wolf Solis) Anxiety Bipolar 1 disorder HTN (hypertension) History of prostate cancer Kidney disease Parkinson disease - Surgical History Surgical History: Surgical History (Last Reviewed 03/27/18 @ 08:59 by Wolf Solis) No history of previous surgery - Family History Family History: Family History (Last Updated 03/27/18 @ 02:48 by Remedios Sheppard MD) Other Lung cancer Prostate cancer - Tobacco History Second Hand Smoke Exposure: No Tobacco Use In Past 30 Days: No Smoking Status: Never smoker - Alcohol History How Often Do You Have a Drink Containing Alcohol: Monthly or less - Substance Use History Substance History: No History of Abuse - Travel History Recent Travel in the [place] Within the Last 8 Weeks: No Recent Travel Out of the Country Within the Last 8 Weeks: No - Immunization History Tetanus Immunization: >5 Years Medications and Allergies Active Medications: Active Medications Acetaminophen (Tylenol) 650 mg PO Q4H PRN PRN Reason: Temp > 100.4 Last Admin: 03/27/18 16:50 Dose: 650 mg Al Hydroxide/Mg Hydroxide (Milk Of Magnesia Liq) 30 ml PO Q12H PRN PRN Reason: Mild Constipation Amlodipine Besylate (Norvasc) 5 mg PO DAILY [facility]ODA Last Admin: 03/28/18 08:51 Dose: 5 mg Atenolol (Tenormin) 25 mg PO DAILY [facility] Last Admin: 03/28/18 08:51 Dose: 25 mg Bethanechol Chloride (Urecholine) 25 mg PO BID [facility] Last Admin: 03/28/18 08:51 Dose: 25 mg Bisacodyl (Dulcolax Supp) 10 mg RECTAL DAILY PRN PRN Reason: SEVERE CONSITIPATION Clonidine HCl (Catapres) 0.1 mg PO Q6H PRN PRN Reason: SEE LABEL COMMENTS Last Admin: 03/27/18 16:48 Dose: 0.1 mg Divalproex Sodium (Depakote Er) 500 mg PO BID [facility] Flumazenil (Romazecon Inj) 0.2 mg IV.PUSH Q1M PRN PRN Reason: OVERSEDATION Haloperidol Lactate (Haldol Inj) 1 mg IV.PUSH Q15M PRN PRN Reason: for severe agitation Sodium Chloride (Ns Inj) 1,000 mls @ 75 mls/hr IV.CONT .[id number] [facility] Last Admin: 03/28/18 07:34 Dose: Not Given Lactulose (Lactulose Liq) 30 ml PO DAILY PRN PRN Reason: SEVERE CONSITIPATION Lorazepam (Ativan) 1 mg PO Q4H PRN PRN Reason: for CIWA 8-10 Last Admin: 03/28/18 12:18 Dose: 1 mg Lorazepam (Ativan) 2 mg PO Q2H PRN PRN Reason: for CIWA 11-14 Lorazepam (Ativan Inj) 2 mg IV.PUSH Q2H PRN PRN Reason: for CIWA 11-14 Lorazepam (Ativan Inj) 2 mg IV.PUSH Q1H PRN PRN Reason: for CIWA 15-20 Lorazepam (Ativan Inj) 2 mg IV.PUSH Q15M PRN PRN Reason: for CIWA > 20 Lorazepam (Ativan Inj) 1 mg IV.PUSH Q4H PRN PRN Reason: for CIWA 8-10 Last Admin: 03/27/18 10:12 Dose: 1 mg Ondansetron HCl (Zofran Inj) 4 mg IV.PUSH Q6H PRN PRN Reason: NAUSEA OR VOMITING Pantoprazole Sodium (Protonix) 40 mg PO DAILY [facility] Last Admin: 03/28/18 08:52 Dose: 40 mg Quetiapine Fumarate (Seroquel) 300 mg PO HS [facility] Last Admin: 03/27/18 20:43 Dose: 300 mg Senna/Docusate Sodium (Kristina-Colace) 1 tab PO BID [facility] Last Admin: 03/28/18 08:52 Dose: 1 tab Sennosides (Senokot) 17.2 mg PO Q12H PRN PRN Reason: Moderate Constipation Tamsulosin HCl (Flomax) 0.4 mg PO DAILY [facility] Last Admin: 03/28/18 08:53 Dose: 0.4 mg Allergies Allergy/AdvReac Type Severity Reaction Status Date / Time metronidazole AdvReac Severe Headache Verified 03/26/18 23:06 Home Medications Medication Instructions Recorded Confirmed Type atenolol 25 mg PO DAILY 03/26/18 03/26/18 History bethanechol chloride 25 mg PO BID 03/26/18 03/26/18 History lithium carbonate 300 mg PO BID 03/26/18 03/26/18 History meloxicam submicronized 5 mg PO DAILY 03/26/18 03/26/18 History omeprazole 40 mg PO DAILY 03/26/18 03/26/18 History quetiapine 150 mg PO QPM 03/26/18 03/26/18 History tamsulosin 0.4 mg PO DAILY 03/26/18 03/26/18 History Exam Vital signs: Vital Signs 03/27/18 15:00 03/27/18 16:00 03/27/18 17:00 Temperature 98.1 F Pulse Rate 72 92 H 69 Respiratory Rate 18 Blood Pressure 180/106 H Pulse Oximetry 97 03/27/18 17:54 03/27/18 20:00 03/27/18 21:00 Temperature 96.6 F L Pulse Rate 67 63 62 Respiratory Rate 18 Blood Pressure 131/87 Pulse Oximetry 97 03/27/18 22:00 03/27/18 23:00 03/28/18 00:00 Temperature 97.2 F L Pulse Rate 76 86 70 Respiratory Rate 22 Blood Pressure 146/95 H Pulse Oximetry 96 03/28/18 01:00 03/28/18 02:00 03/28/18 03:00 Temperature Pulse Rate 68 68 74 Respiratory Rate Blood Pressure Pulse Oximetry 03/28/18 04:00 03/28/18 05:00 03/28/18 06:00 Temperature 96.6 F L Pulse Rate 64 68 72 Respiratory Rate 22 Blood Pressure 161/97 H Pulse Oximetry 95 03/28/18 08:00 Temperature 98.1 F Pulse Rate 72 Respiratory Rate 18 Blood Pressure 148/96 H Pulse Oximetry 96 Intake & Output 03/27/18 03/28/18 03/28/18 18:59 06:59 18:59 Intake Total 1620 / 1620 240 / 240 Output Total 750 / 750 400 / 400 Balance 870 / 870 -160 / -160 Weight 96 kg Intake: IV 1000 / 1000 NS Inj 1,000 ML @ 75 mls/hr IV. 1000 / 1000 CONT .[id number] HODA Rx#:[id number] Oral 620 / 620 240 / 240 Output: Urine 750 / 750 400 / 400 Other: # Voids 3 Date of Last Bowel Movement 03/26/18 Mental Status Examination Appearance: Appropriate Consciousness: Alert Orientation: x4 Motor Activity: Normal gait Speech: Unremarkable Language: Adequate Fund of Knowledge: Adequate Attention and Concentration: Adequate Memory: Unremarkable Mood: Appropriate Affect: Appropriate Thought Process & Associations: Intact Thought Content: Appropriate Hallucination Type: None Delusion Type: None Suicidal Ideation: No Suicidal Plan: No Suicidal Intention: No Homicidal Ideation: No Homicidal Plan: No Homicidal Intention: No Insight: Adequate Judgment: Adequate Assessment and Plan - Assessment (1) Bipolar disorder Code(s): F31.9 - Bipolar disorder, unspecified Status: Acute (2) Bipolar disorder Code(s): F31.9 - Bipolar disorder, unspecified Status: Acute - Plan Plan: Patient seems to be tolerating Depakote okay. Will increase the Depakote to 500 mg twice daily. I will order a Depakote level tomorrow. The target will be a level between 50 and 100. Continue Seroquel 300 mg at bedtime. We will follow-up Justification for Continued Inpatient Stay: No admission indicated
--- NOTE | 2018-03-28 16:17 | P.PNIM ---
Subjective Interval history: Patient has been anxious today and wanting to go home. He does not remember me from yesterday. His admits that his dementia is progressively getting worse. He is eating and drinking better. Less shaky. Physical Exam Vital signs: Vital Signs 03/27/18 17:00 03/27/18 17:54 03/27/18 20:00 Temperature 96.6 F L Pulse Rate 69 67 63 Respiratory Rate 18 Blood Pressure 131/87 Pulse Oximetry 97 03/27/18 21:00 03/27/18 22:00 03/27/18 23:00 Temperature Pulse Rate 62 76 86 Respiratory Rate Blood Pressure Pulse Oximetry 03/28/18 00:00 03/28/18 01:00 03/28/18 02:00 Temperature 97.2 F L Pulse Rate 70 68 68 Respiratory Rate 22 Blood Pressure 146/95 H Pulse Oximetry 96 03/28/18 03:00 03/28/18 04:00 03/28/18 05:00 Temperature 96.6 F L Pulse Rate 74 64 68 Respiratory Rate 22 Blood Pressure 161/97 H Pulse Oximetry 95 03/28/18 06:00 03/28/18 07:00 03/28/18 08:00 Temperature 98.1 F Pulse Rate 72 68 68 Respiratory Rate 18 Blood Pressure 148/96 H Pulse Oximetry 96 03/28/18 09:00 03/28/18 10:00 03/28/18 11:00 Temperature Pulse Rate 80 66 70 Respiratory Rate Blood Pressure Pulse Oximetry 03/28/18 12:00 03/28/18 13:00 03/28/18 14:00 Temperature 98.4 F Pulse Rate 70 70 70 Respiratory Rate 18 Blood Pressure 139/93 H Pulse Oximetry 98 Intake & Output 03/27/18 03/28/18 03/28/18 18:59 06:59 18:59 Intake Total 1620 / 1620 240 / 240 Output Total 750 / 750 400 / 400 Balance 870 / 870 -160 / -160 Weight 96 kg Intake: IV 1000 / 1000 NS Inj 1,000 ML @ 75 mls/hr IV. 1000 / 1000 CONT .[id number] HODA Rx#:[id number] Oral 620 / 620 240 / 240 Output: Urine 750 / 750 400 / 400 Other: # Voids 3 Date of Last Bowel Movement 03/26/18 Narrative: GENERAL: No acute distress. SKIN: Warm and dry. HEAD: Normocephalic. EYES: No scleral icterus. No injection or drainage. NECK: Supple, trachea midline. No JVD or lymphadenopathy. CARDIOVASCULAR: Regular rate and rhythm without murmurs, gallops, or rubs. RESPIRATORY: Breath sounds equal bilaterally. No accessory muscle use. GASTROINTESTINAL: Abdomen soft, non-tender, nondistended. MUSCULOSKELETAL: No cyanosis, or edema. Neuro: Demented but able to hold a simple conversation. Focused on going home. Results - Labs CBC & Chem 7: 03/27/18 03:40 03/28/18 11:14 Laboratory Results - last 24 hr 03/27/18 03/27/18 03/28/18 16:47 16:47 11:14 Sodium 142 Potassium 4.7 Chloride 113 H Carbon Dioxide 22.4 Anion Gap 7 BUN 18 Creatinine 2.65 H Estimated GFR 24 L Random Glucose 90 Calcium 9.3 Ammonia 33 H Vitamin B12 371 TSH 1.390 Free T4 0.98 - Imaging Impressions Neck MRA 03/27/18 00:00 CONCLUSION: 1. Negative MRA Carotids non contrast. _ Percent stenosis is calculated using the diameter of the stenotic region over the diameter of the normal distal internal carotid artery _ Head/Brain Mag Res Venography 03/28/18 00:00 CONCLUSION: 1. Asymmetrical signal in the central sagittal sinus/confluence of sinuses extending to the left transverse sinus and straight sinus. 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 Contrast-enhanced examination may be performed if there is continued clinical concern. Assessment and Plan - Plan 72 Y/O male 1. 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 These findings correspond to the patient's cerebellar symptoms. Neurology following, appreciate input. MRV ordered. - Patient is an alcoholic and has lewi body dementia. - B12 supplement per neuro recs. - PT to evaluate 2. Acute kidney failure Creatinine 2.73, baseline 1.3. Possible progression of CKD. NSAID use also contributing vs [place] Appreciate Nephrology input. [place] discontinued. Renal function stable. Continue to monitor. 3. Hypertension Continue home atenolol 4. Bipolar disorder Appreciate input from psychiatry. - [place] Dced. Patient started on Depakote. Continue Seroquel. 5. Alcohol dependence/withdrawal: - Scoring less on CIWA. Continue protocol.
--- NOTE | 2018-03-28 18:32 | P.PNNP ---
Subjective Interval history: patient is overall stable. BP is better controlled. Renal function is stable. Physical Exam Vital signs: Vital Signs 03/27/18 20:00 03/27/18 21:00 03/27/18 22:00 Temperature 96.6 F L Pulse Rate 63 62 76 Respiratory Rate 18 Blood Pressure 131/87 Pulse Oximetry 97 03/27/18 23:00 03/28/18 00:00 03/28/18 01:00 Temperature 97.2 F L Pulse Rate 86 70 68 Respiratory Rate 22 Blood Pressure 146/95 H Pulse Oximetry 96 03/28/18 02:00 03/28/18 03:00 03/28/18 04:00 Temperature 96.6 F L Pulse Rate 68 74 64 Respiratory Rate 22 Blood Pressure 161/97 H Pulse Oximetry 95 03/28/18 05:00 03/28/18 06:00 03/28/18 07:00 Temperature Pulse Rate 68 72 68 Respiratory Rate Blood Pressure Pulse Oximetry 03/28/18 08:00 03/28/18 09:00 03/28/18 10:00 Temperature 98.1 F Pulse Rate 68 80 66 Respiratory Rate 18 Blood Pressure 148/96 H Pulse Oximetry 96 03/28/18 11:00 03/28/18 12:00 03/28/18 13:00 Temperature 98.4 F Pulse Rate 70 70 70 Respiratory Rate 18 Blood Pressure 139/93 H Pulse Oximetry 98 03/28/18 14:00 Temperature Pulse Rate 70 Respiratory Rate Blood Pressure Pulse Oximetry Intake & Output 03/27/18 03/28/18 03/28/18 18:59 06:59 18:59 Intake Total 1620 / 1620 240 / 240 Output Total 750 / 750 400 / 400 Balance 870 / 870 -160 / -160 Weight 96 kg Intake: IV 1000 / 1000 NS Inj 1,000 ML @ 75 mls/hr IV. 1000 / 1000 CONT .[id number] HODA Rx#:[id number] Oral 620 / 620 240 / 240 Output: Urine 750 / 750 400 / 400 Other: # Voids 3 Date of Last Bowel Movement 03/26/18 Narrative: No tremors, no EPS, no psychomotor agitation or retardation - Constitutional no acute distress - Routine HEENT Exam Head: Present: normocephalic, atraumatic Eye: Present: EOMI, PERRL ENT: Present: mucous membranes moist - Routine Neck Exam Present: supple. Absent: JVD, carotid bruit, lymphadenopathy, thyromegaly - Routine Respiratory Exam Present: CTA bilaterally - Routine Cardiovascular Exam Present: RRR, S1, S2 - Routine Abdominal Exam Present: soft, normoactive bowel sounds - Routine Extremities Exam Absent: edema - Routine Skin Exam Present: intact - Routine Neurological Exam Present: alert, oriented X3 Assessment and Plan - Assessment (1) Acute worsening of stage 4 chronic kidney disease Code(s): N28.9 - Disorder of kidney and ureter, unspecified; N18.4 - Chronic kidney disease, stage 4 (severe) Status: Acute Plan: As mentioned above his creatinine was 1.8 in 2015. No other recent labs. It is possible that patient may have progressive renal dysfunction due to [place]. Patient also was on Meloxicam. He should stop all NSAIDs. [place] has been stopped and I agree. He is now on Depakote, seen by psychiatry , also on Seroquel. Consider psychiatry evaluation for choosing an alternative drug for his bipolar illness. Reduce and taper off fluids. Avoid any other nephrotoxic agents. (2) Bipolar illness Code(s): F31.9 - Bipolar disorder, unspecified Status: Acute Plan: See above. Seen by psychiatry, now on Depakote. (3) Essential (primary) hypertension Code(s): I10 - Essential (primary) hypertension Status: Acute Plan: BP control has improved. (4) Gait instability Code(s): R26.81 - Unsteadiness on feet Status: Acute Plan: MRI and MRA of head and neck negative for any acute anomaly. - Attending Attestation patient can be discharged from renal standpoint.
[2018-03-28] MEDS: Divalproex 500 MG ER Tablet PO SCH (21:20)
[2018-03-28] MEDS: QUEtiapine 100 MG Tablet PO SCH (21:20)
[2018-03-28] MEDS ORDERED: Sodium Chloride 0.9% 2 ML Flush PRN IV.FLUSH (23:38)
[2018-03-29] MEDS: LORazepam 1 MG Tablet PO PRN ×3 (01:49→13:10)
[2018-03-29 06:57] LABS: Albumin 3.1 g/dL (3.4-5.0); Carbon Dioxide 21.7 meq/L (21.0-32.0)
[2018-03-29] MEDS: Atenolol 25 MG Tablet PO SCH (08:44)
[2018-03-29] MEDS: amLODIPine 5 MG Tablet PO SCH (08:45)
[2018-03-29] MEDS: Divalproex 500 MG ER Tablet PO SCH (08:45)
[2018-03-29] MEDS: Senna/Docusate Sodium 8.6/50 MG Tablet PO SCH (08:45)
[2018-03-29] MEDS ORDERED: Sodium Chloride 0.9% 2 ML Flush BID IV.FLUSH SCH (09:00)
--- NOTE | 2018-03-29 11:51 | P.DCO ---
- Diagnosis (1) Gait instability Status: Acute (2) Bipolar illness Status: Acute (3) Essential (primary) hypertension Status: Acute (4) Bipolar disorder Status: Acute - Physical Therapy Order: Evaluate and treat, Improve ambulation, Strength and gait training - Occupational Therapy Order: Evaluate and treat, Improve ADL - Home Health Nursing Order: Medical education, Signs/symptoms of disease process - Case Management Consult Yes - Certification I have seen patient Souleymane Gomez on 03/29/18. My clinical findings support the need for the requested home health care services because: Limited mobility due to disease progression, Deconditioned with increased weakness, Limited ability to care for self, Impaired cognition/judgement I certify that my clinical findings support that this patient is homebound because: Impaired cognitive ability/safety, Unsteady gait/balance, Unsafe to leave home unassisted
[2018-03-29 12:17] VITALS: BP 132/91; TEMP 98.1; O2SAT 99
--- NOTE | 2018-03-29 12:28 | P.DS ---
Date of admission: 03/26/18 23:44 Primary care physician: UNKNOWN Brief History from admission: HPI from the admitting physician: 72-year-old male with a past medical history significant for Parkinson's disease , bipolar disorder, hypertension and a history of prostate cancer presents to the emergency department for the evaluation of acute renal failure and new findings on MRI. For the past several days, the patient has had 3 major falls. He complains of associated headache. Per ED documentation, the patient's states that he was confused and unable to complete sentences. He is followed by Dr. Osborne, his neurologist, in [place]. He was seen in neurology clinic yesterday for evaluation of his falls, unsteady gait, confusion and increased baseline tremor. Lab work revealed an elevated creatinine. 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 It was recommended to the patient that he be admitted to [facility] in [place] for further evaluation. As the patient lives in [place], he declined admission in [place] and came to [place] for further evaluation. He denies any chest pain or shortness of breath. No fever/chills. No abdominal pain. No nausea/vomiting/diarrhea. Patient update on day of discharge: Patient reports he is feeling great. He adamantly refused SNF placement for rehabilitation. He wants to return home. Discussed extensively with the patient and his . He adamantly refused placement and elected to return home. His will help care for him. He will stay on the first floor of his house. DS: Diagnosis - Discharge Diagnosis (1) Gait instability Status: Acute (2) Bipolar illness Status: Acute (3) Essential (primary) hypertension Status: Acute (4) Bipolar disorder Status: Acute DS: Medications - Discharge Medications Prescriptions: amlodipine [Norvasc] 5 mg PO DAILY #30 tab divalproex [Depakote ER] 500 mg PO DAILY #30 tab lorazepam 1 mg PO Q4H PRN #10 tab PRN Reason: Anxiety quetiapine 300 mg PO HS #30 tab DS: Summary Hospital Course: 72 Y/O male who presented to the hospital for abnormal brain MRI/cerebellar symptoms. 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 These findings were concerning for the patient's cerebellar symptoms. The patient was followed by neurology. He underwent multiple MRIs and MRV. Per neurology recommendations, he can follow-up outpatient with his neurologist. I also suspect chronic alcohol use is probably contributing to his symptoms. The patient also has Lewy body dementia. He was strongly advised to not drink alcohol. He was advised to follow-up with his outpatient neurologist. Other conditions treated include: Acute kidney failure Creatinine 2.73 on presentation, baseline 1.3. Possible progression of CKD. NSAID use also contributing vs [place]. The patient was followed by nephrology. NSAIDs and lithium discontinued. His renal functions improved. Hypertension Continue home atenolol Bipolar disorder Appreciate input from psychiatry. - [place] Dced. Patient started on Depakote. Continue Seroquel. Alcohol dependence/withdrawal: -Patient required Ativan for withdrawal symptoms. His symptoms significantly improved. He was strongly counseled to not drink alcohol given his significant gait issues. The patient was discharged home with home health. He adamantly refused SNF placement for rehab. A [id number] was signed in case he failed home health. - Time Spent with Patient Total time spent providing and/or coordinating discharge services: Greater than 30 minutes Exam Vital signs: Vital Signs 03/28/18 13:00 03/28/18 14:00 03/28/18 15:00 Temperature Pulse Rate 70 70 70 Respiratory Rate Blood Pressure Pulse Oximetry 03/28/18 16:00 03/28/18 17:00 03/28/18 18:00 Temperature 98.1 F Pulse Rate 72 70 70 Respiratory Rate 18 Blood Pressure 150/93 H Pulse Oximetry 95 03/28/18 19:00 03/28/18 20:00 03/28/18 21:00 Temperature 98.2 F Pulse Rate 70 70 68 Respiratory Rate 18 Blood Pressure 141/81 H Pulse Oximetry 97 03/28/18 22:00 03/28/18 23:00 03/29/18 00:00 Temperature 98.8 F Pulse Rate 70 67 70 Respiratory Rate 18 Blood Pressure 141/90 H Pulse Oximetry 95 03/29/18 01:00 03/29/18 02:00 03/29/18 03:00 Temperature Pulse Rate 76 72 70 Respiratory Rate Blood Pressure Pulse Oximetry 03/29/18 04:00 03/29/18 05:00 03/29/18 06:00 Temperature 96.2 F L Pulse Rate 69 65 67 Respiratory Rate 18 Blood Pressure 153/97 H Pulse Oximetry 95 03/29/18 08:00 03/29/18 12:00 Temperature 98.2 F 98.1 F Pulse Rate 81 68 Respiratory Rate 18 18 Blood Pressure 156/106 H 132/91 H Pulse Oximetry 94 L 99 Intake & Output 03/28/18 03/29/18 03/29/18 18:59 06:59 18:59 Intake Total 960 / 960 980 / 980 Output Total 200 / 200 Balance 960 / 960 780 / 780 Weight 96.2 kg Intake: Oral 960 / 960 980 / 980 Output: Urine 200 / 200 Other: # Voids 3 5 Date of Last Bowel Movement 03/26/18 03/26/18 Narrative: GENERAL: No acute distress. SKIN: Warm and dry. HEAD: Normocephalic. EYES: No scleral icterus. No injection or drainage. NECK: Supple, trachea midline. No JVD or lymphadenopathy. CARDIOVASCULAR: Regular rate and rhythm without murmurs, gallops, or rubs. RESPIRATORY: Breath sounds equal bilaterally. No accessory muscle use. GASTROINTESTINAL: Abdomen soft, non-tender, nondistended. MUSCULOSKELETAL: No cyanosis, or edema. Neuro: Demented but able to hold a simple conversation. Focused on going home. Results Procedures completed during hospitalization: None Labs on day of discharge: Labs from last 24 hours 03/29/18 05:41 Sodium 144 Potassium 4.0 Chloride 114 H Carbon Dioxide 21.7 Anion Gap 8 BUN 22 H Creatinine 2.66 H Estimated GFR 24 L Random Glucose 88 Calcium 9.0 Phosphorus 3.0 Albumin 3.1 L Valproic Acid 35 L - Impressions ITS Impressions Abdomen/Bladder Ultrasound 03/27/18 00:00 CONCLUSION: 1. Minimal increase in echogenicity suggesting chronic renal disease. Renal size is maintained. No hydronephrosis. Head MRI 03/27/18 00:00 CONCLUSION: 1. Atrophy. 2. No signs of acute infarction. Head MRA 03/27/18 00:00 CONCLUSION: 1. Negative MRA [place] non contrast. Neck MRA 03/27/18 00:00 CONCLUSION: 1. Negative MRA Carotids non contrast. _ Percent stenosis is calculated using the diameter of the stenotic region over the diameter of the normal distal internal carotid artery _ Head/Brain Mag Res Venography 03/28/18 00:00 CONCLUSION: 1. Asymmetrical signal in the central sagittal sinus/confluence of sinuses extending to the left transverse sinus and straight sinus. 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 Contrast-enhanced examination may be performed if there is continued clinical concern. Discharge Plan - Discharge Disposition Patient Disposition: W/Home Health Service - Discharge Condition Condition: Stable - Discharge Order Discharge Orders: Discharge Order (Routine); Ordered 03/29/18 Ordered By: Jamie Wylie - Physicians Team Primary Care Provider: UNKNOWN, Attending Provider: Jamie Wylie Other Providers: [employer] ; John Roy MD ; Alice Franz MD ; Robert Solis MD
[2018-03-29 14:10] VITALS: PULSE 72
== END 2018-03-29 14:25 | disposition home health service (06) ==
LOC: NEPC 18:31 → NEDA 23:44 → HCIS 03-27 08:23
PROVIDERS: ADMIT Family Medicine; ATTEND Family Medicine